=== PATIENT | male | born 1990 | race Caucasian/White ===

== ENCOUNTER → 2017-04-05 | Outpatient (REF) ==
--- NOTE | 2017-04-05 12:23 | REP ---
CHEST, TWO VIEWS: There is no evidence of acute infiltrate. No pleural effusion is seen. The heart is normal in size. The mediastinal silhouette is unremarkable. The visualized osseous structures are intact. IMPRESSION: No acute pulmonary disease. Signed by Aubrey Nunes MD 04/05/2017 01:14 P
== END ==
LOC: M LAB 11:30
PROVIDERS: ATTEND Nurse Practitioner Adult Health
DX: Z02.9 Encounter for administrative examinations, unspecified (principal)

== ENCOUNTER → 2017-04-07 | Outpatient (CLI) | payer BC ==
[2017-04-07 15:01] LABS: ALBUMIN 4.1 GM/DL (3.2-5.2); ALBUMIN/GLOBULIN RATIO 1.41 (1.00-1.93); ALKALINE PHOSPHATASE 91 U/L (45-117); ALT/SGPT 34 U/L (12-78); ANION GAP 5 MEQ/L (8-16); AST/SGOT 12 U/L (15-37); BILIRUBIN,TOTAL 1.4 MG/DL (0.2-1.0); BLOOD UREA NITROGEN 15 MG/DL (7-18); CALCIUM LEVEL 9.6 MG/DL (8.5-10.1); CARBON DIOXIDE LEVEL 29 MEQ/L (21-32); CHLORIDE LEVEL 101 MEQ/L (98-107); CHOLESTEROL LEVEL 155 MG/DL (<200); CREATININE FOR GFR 0.69 MG/DL (0.70-1.30); FREE T4 0.95 NG/DL (0.76-1.46); GLOMERULAR FILTRATION RATE > 60.0 (>60); GLUCOSE, FASTING 99 MG/DL (70-105); POTASSIUM SERUM 4.2 MEQ/L (3.5-5.1); SODIUM LEVEL 135 MEQ/L (136-145); TRIGLYCERIDES LEVEL 92 MG/DL (<150)
--- NOTE | 2017-04-08 06:30 | REP ---
Clinical: Thyromegaly. Technique: Real time fiore scale and color evaluation using linear high frequency transducer. Findings: The thyroid gland is heterogeneous and mildly enlarged without discrete, focal nodule or cystic abnormality. Right lobe measures 6.8 x 2.2 x 1.6 cm. Left lobe measures 6.0 x 1.6 x 1.5 cm. Isthmus measures 5.7 mm in width. Impression: Mildly enlarged thyroid gland without discrete focal abnormality. Signed by Franc Meza MD 04/08/2017 06:21 A
== END ==
LOC: M RAD 14:44
PROVIDERS: ATTEND Family Medicine
DX: E66.9 Obesity, unspecified (principal); I10 Essential (primary) hypertension; E01.0 Iodine-deficiency related diffuse (endemic) goiter

== ENCOUNTER → 2018-01-15 | Outpatient (CLI) | payer BC | LOC: M ADAMS 11:10 | DX: M25.562 Pain in left knee (principal) | CPT/HCPCS: 73564 ==